=== PATIENT | male | born 1965 | race Caucasian/White ===

== ENCOUNTER → 2018-03-31 | Day surgery (SDC) | payer BC ==
[~2018-03-31] MED LIST: ASPI-630 PO; ATOR10TA60 PO; IV RINGERS,LACTATED 1000ML 1,000 ML IV SCH; MULT1TAB52 PO; PROPOFOL 40 ML IV ONE; TAMS0.4C2 PO
[2018-03-31 17:08] VITALS: BP 104/68
--- NOTE | 2018-04-02 16:09 | PATHOLOGY ---
[facility] Accession Number: [id number] . 01 Material submitted: . DISTAL ESOPHAGUS BIOPSY . 01 Clinical history: . Heartburn, screening . 02 Diagnosis: Esophagus, distal, biopsy: - Squamocolumnar epithelium with intestinal metaplasia, findings compatible with Pat's esophagus. - No evidence of dysplasia. - Mild chronic inflammation. . (SKM:kaleb; 04/02/2018) MBR/04/02/2018 . 02 Electronically signed: . Po Archer MD, Pathologist NPI- [id number] . 01 Gross description: . Received in formalin labeled "[place] III, Livan, distal esophagus BX," are 4 segments of jackson soft tissue measuring 1.9 x 0.6 x 0.2 cm in aggregate dimensions and ranging from 0.4 to 0.5 cm in maximum dimension. The specimen is submitted entirely in cassette A1. (TSD; 04/01/2018) TOB/TOB . 02 Pathologist provided ICD-10: K22.70 . 02 CPT . 377132 Specimen Comment: A courtesy copy of this report has been sent to Specimen Comment: [phone], . Specimen Comment: Report sent to / DR NIXON Specimen Comment: A duplicate report has been generated due to demographic updates. Performed at: 01 [facility] [address] [facility] [address], [place] [id number] MD Marco Hyatt MD Phone: [phone] Performed at: 02 [facility] [address] [place], [place] [id number] MD Carlitos Fonseca MD Phone: [phone]
== END | disposition home or self-care (01) ==
LOC: SURG 15:26
PROVIDERS: ATTEND Internal Medicine Gastroenterology
DX: Z12.11 Encounter for screening for malignant neoplasm of colon (principal); K64.0 First degree hemorrhoids; K21.0 Gastro-esophageal reflux disease with esophagitis; K29.50 Unspecified chronic gastritis without bleeding; I10 Essential (primary) hypertension; E78.00 Pure hypercholesterolemia, unspecified; I25.2 Old myocardial infarction; Z88.2 Allergy status to sulfonamides; K58.9 Irritable bowel syndrome, unspecified; Z83.3 Family history of diabetes mellitus; Z72.0 Tobacco use; Z79.82 Long term (current) use of aspirin; Z79.899 Other long term (current) drug therapy; Z90.49 Acquired absence of other specified parts of digestive tract; Z98.890 Other specified postprocedural states
CPT/HCPCS: 43239; 45378; J2704; 88305